=== PATIENT | female | born 1955 | race Caucasian/White ===

== ENCOUNTER 2018-10-19 05:44 | Observation (INO) | payer MEDICARE, OTHER ==
[2018-10-19] MEDS ORDERED: Sodium Chloride 0.9% 10 ML Syringe FLUSH PRN ×2 (05:53→17:07)
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
[2018-10-19] MEDS ORDERED: Furosemide 40 MG Tab PO ONE (06:49)
[2018-10-19] MEDS ORDERED: methylPREDNISolone Sodium Succinate 125 MG/2 ML SDV IVPUSH ONE (07:02)
[2018-10-19 07:03] LABS: CHLORIDE,CL 106 mmol/L (98-107); SODIUM,NA 143 mmol/L (136-145)
[2018-10-19 07:05] LABS: ANION GAP 9.8 mmol/L (10-20)
[2018-10-19] MEDS ORDERED: Iopamidol 612 MG/ML 100 ML Bottle IVPUSH ONE (07:36)
[2018-10-19] MEDS ORDERED: Albuterol/Ipratropium 3.0-0.5 MG/3 ML Neb Soln NEB PRN (08:00)
[2018-10-19] MEDS ORDERED: Nicotine 14 MG/24 Hr Patch TRDERM SCH (08:00)
[2018-10-19] MEDS ORDERED: Magnesium Sulfate/Water 2 GM in Premix Bag 1 BAG IV ONE (08:06)
--- NOTE | 2018-10-19 08:19 | CR ---
[id number] RAD/RAD Chest PA or AP 1V EXAM: RAD Chest PA or AP 1V INDICATION: SHORTNESS OF BREATH. COMPARISON: 2010. DISCUSSION: Cardiomediastinal silhouette is normal in size and contour, given differences in patient positioning compared to the prior examination. No infiltrate, effusion, pneumothorax, or edema. IMPRESSION: Negative examination of the chest. Benito Griffith MD 10/19/18 0818 Thank you for allowing us to participate in the care of your patient.
--- NOTE | 2018-10-19 08:48 | CT ---
[id number] CT/CTA Chest Exam: CTA Chest Clinical Data: SHORTNESS OF BREATH COMPARISON: CORRELATION IS MADE WITH THE CAT SCAN OF MARCH 18, 2017. FINDINGS: There are no pulmonary emboli. There are small bilateral effusions. There are minimal infiltrates at both lung bases. There is no adrenal mass. There is no mediastinal mass or adenopathy. IMPRESSION: NO PULMONARY EMBOLI. Erik Vera MD 10/19/18 0879 Thank you for allowing us to participate in the care of your patient.
[2018-10-19] MEDS ORDERED: methylPREDNISolone Sodium Succinate 125 MG/2 ML SDV IVPUSH SCH (15:00)
[2018-10-19] MEDS ORDERED: Enoxaparin 40 MG/0.4 ML Syringe SUBCUT ONE (15:29)
--- NOTE | 2018-10-19 15:38 | PCM.SN ---
- Free Text/Narrative Note: Results of CTA chest negative for PE. Will begin Lovenox 40 mg daily SQ injection.
[2018-10-19] MEDS ORDERED: HYDROCODONE PO PRN (15:50)
[2018-10-19] MEDS ORDERED: ALBUTEROL INH PRN (15:50)
[2018-10-19] MEDS ORDERED: Ibuprofen 200 MG Tab PO PRN (15:50)
[2018-10-19] MEDS ORDERED: Nitroglycerin 0.4 MG Tab.SL SL PRN (15:50)
[2018-10-19] MEDS ORDERED: LIDOCAINE HCL TP PRN (15:50)
[2018-10-19] MEDS ORDERED: Non-Formulary Medication 1 Each (Nystatin [Nystatin] 1 APPLIC) TOP PRN (15:50)
[2018-10-19] MEDS ORDERED: Loratadine 10 MG Tab PO PRN (15:50)
[2018-10-19] MEDS ORDERED: ACETAMINOPHEN PO PRN (15:50)
[2018-10-19] MEDS ORDERED: Vitamin B6-pyridOXINE 50 MG Tab PO SCH (16:00)
[2018-10-19] MEDS ORDERED: UREA TOP SCH (16:00)
[2018-10-19] MEDS ORDERED: Furosemide 40 MG Tab **OWN MED PO SCH (16:00)
[2018-10-19] MEDS ORDERED: Potassium Chloride 10 MEQ Tab.ER PO SCH (16:00)
[2018-10-19] MEDS ORDERED: CITALOPRAM 20 MG PO SCH (16:00)
[2018-10-19] MEDS ORDERED: Nitroglycerin 0.4 MG/HR Transdermal Patch TRDERM SCH (16:00)
[2018-10-19] MEDS ORDERED: Calcium Carbonate/Vitamin D3 1250 MG-200 Unit Tab PO SCH (16:00)
[2018-10-19] MEDS ORDERED: LEFLUNOMIDE 10 MG PO SCH (16:00)
[2018-10-19] MEDS ORDERED: Non-Formulary Medication 1 Each (Magnesium Oxide [Magnesium] 500 MG) PO SCH (16:00)
[2018-10-19] MEDS ORDERED: ENALAPRIL 10 MG PO SCH (16:00)
[2018-10-19] MEDS ORDERED: Fish Oil/Omega-3 Fatty Acids 1 Gm Cap PO SCH (16:00)
[2018-10-19] MEDS ORDERED: LORazepam 0.5 MG Tab PO PRN (17:00)
[2018-10-19] MEDS ORDERED: MINOCYCLINE 100 MG PO SCH (17:00)
[2018-10-19] MEDS ORDERED: Aspirin 81 MG Tab.EC PO SCH (17:00)
[2018-10-19] MEDS ORDERED: Cyanocobalamin (Vitamin B12) 250 MCG Tab PO SCH (17:00)
[2018-10-19] MEDS ORDERED: Aspirin 325 MG Tab.EC PO SCH (17:00)
[2018-10-19] MEDS: Carvedilol 6.25 MG Tab **OWN MED PO SCH ×2 (17:09→18:22)
[2018-10-19] MEDS ORDERED: Magnesium Oxide 400 MG Tab PO SCH (17:15)
[2018-10-19] MEDS ORDERED: Heparin Sodium/0.45% NaCl 25,000 UNITS/500 ML BAG IV SCH (17:15)
--- NOTE | 2018-10-19 17:20 | PCM.SN ---
- Free Text/Narrative Note: Repeat troponin level of 0.591. I did review this finding with the patient and again encouraged her to allow transfer to [place] for additional testing. She did say she will visit with her daughter and let me know about transfer. In the meantime, will stop ibuprofen, start heparin gtt. No bolus due to recent Lovenox injection. Increase ASA to 325mg. Repeat EKG shows minimal changes anterior leads. No acute STEMI
[2018-10-19] MEDS ORDERED: Acetaminophen/HYDROcodone 325-10 MG Tab PO PRN (17:47)
[2018-10-19 18:14] VITALS: BP 154/70; PULSE 93
--- NOTE | 2018-10-19 19:10 | PCM.SN ---
- Free Text/Narrative Note: Discussion held with patient and her daughter. Decision was made to go to [place] for further investigation.
--- NOTE | 2018-10-19 19:20 | PCM.DCSUM1 ---
Discharge Summary - Hospital Course Diagnosis: Stroke: No - Discharge Data Discharge Date: 10/19/18 Discharge Disposition: DC/Tfer to Acute Hospital 02 Condition: Good - Discharge Diagnosis/Problem(s) (1) COPD exacerbation SNOMED Code(s): 047451703 ICD Code: J44.1 - CHRONIC OBSTRUCTIVE PULMONARY DISEASE W (ACUTE) EXACERBATION Status: Acute Priority: Medium Current Visit: Yes - Patient Summary/Data Consults: Consultations 10/19/18 08:23 Consult to Case Management/Fabric Designer [CONS] Routine - Discharge Plan *PRESCRIPTION DRUG MONITORING PROGRAM REVIEWED*: Not Applicable *COPY OF PRESCRIPTION DRUG MONITORING REPORT IN PATIENT NIKI: Not Applicable Home Medications: Home Meds Aspirin [Halfprin] 81 mg PO DAILY 10/24/13 [History] Carvedilol [Coreg] 6.25 mg PO TIDMEALS 10/24/13 [History] Citalopram Hydrobromide [Celexa] 30 mg PO DAILY 10/24/13 [History] Cyanocobalamin (Vitamin B-12) [Vitamin B-12] 250 mcg PO DAILY 10/24/13 [History] Enalapril Maleate [Vasotec] 10 mg PO DAILY 10/24/13 [History] Hydrocodone/Acetaminophen [Union 7.5-325 Tablet] 1 - 1.5 tab PO Q6H PRN [History] Imipramine HCl [Tofranil] 10 mg PO DAILY 10/24/13 [History] Magnesium Oxide [Magnesium] 500 mg PO DAILY 10/24/13 [History] Nitroglycerin [Nitro-Dur 0.4 MG/Hr] 0.4 mg TRDERM DAILY 10/24/13 [History] Nitroglycerin [Nitrostat] 0.3 mg SL Q5M PRN 10/24/13 [History] Potassium Chloride 10 meq PO DAILY 10/24/13 [History] Lidocaine HCl [Aspercreme] 1 applic TP TID PRN 04/19/16 [History] Albuterol [IJD: Ventolin HFA] 1 puff PO Q4H PRN 05/03/16 [History] Ergocalciferol (Vitamin D2) [Vitamin D2] 50,000 unit PO WEEKLY 05/03/16 [History ] Ezetimibe/Simvastatin [Vytorin 10-20 mg Tablet] 1 tab PO BEDTIME 05/03/16 [ History] Nystatin 1 applic TOP BID PRN 06/16/16 [History] Pyridoxine HCl (Vitamin B6) [Pyridoxine HCl] 100 mg PO DAILY 06/16/16 [History] Calcium Carbonate [Calcium] 1,200 mg PO DAILY 10/19/18 [History] Esomeprazole Magnesium [Nexium] 40 mg PO DAILY 10/19/18 [History] Furosemide [Lasix] 60 mg PO DAILY 10/19/18 [History] Ibuprofen 600 mg PO BID PRN 10/19/18 [History] LORazepam [Ativan] 0.5 mg PO DAILY PRN 10/19/18 [History] Leflunomide [Arava] 10 mg PO DAILY 10/19/18 [History] Loratadine [Claritin] 10 mg PO DAILY PRN 10/19/18 [History] Minocycline [Minocin] 100 mg PO BIDAC 10/19/18 [History] [place]-3/DHA/Epa/Fish Oil [[place]-3 Fish Oil 1,200 MG Sfgl] 1,200 mg PO DAILY 02/27 [History] Urea [Urea 20% Crm] 1 applic TOP DAILY 10/19/18 [History] traZODone HCl [Trazodone HCl] 100 mg PO BEDTIME 10/19/18 [History] Forms: ED Department Discharge, Interfacility Transfer EMTALA Referrals: Marian Lugo DO [Primary Care Provider] - - Discharge Summary/Plan Comment DC Time >30 min.: Yes Discharge Summary/Plan Comment: Patient will be transferred to [facility] for further evaluation. Dr. Rojas given report and she has accepted to the general medical floor. - General Info Admission Dx/Problem (Free Text: elevated troponin, copd exacerbation Functional Status: Reports: Pain Controlled - Review of Systems General: Reports: No Symptoms HEENT: Reports: No Symptoms Pulmonary: Reports: Shortness of Breath Cardiovascular: Reports: No Symptoms Gastrointestinal: Reports: No Symptoms Genitourinary: Reports: No Symptoms Musculoskeletal: Reports: No Symptoms Skin: Reports: No Symptoms Neurological: Reports: No Symptoms Psychiatric: Reports: Anxiety - Patient Data Vitals - Most Recent: Last Vital Signs Temp 36.8 C 10/19/18 18:00 Pulse 93 10/19/18 18:00 Resp 20 10/19/18 18:00 BP 154/70 H 10/19/18 18:00 Pulse Ox 100 10/19/18 18:00 Weight - Most Recent: 102.512 kg I&O - Last 24 hours: Intake & Output 10/19/18 10/19/18 10/19/18 06:59 14:59 22:59 Intake Total 240 1370 Output Total 300 Balance -60 1370 Lab Results - Last 24 hrs: Laboratory Results - last 24 hr 10/19/18 10/19/18 10/19/18 Range/Units 06:03 06:03 06:03 WBC 9.1 (4.0-10.0) x10^3/uL RBC 4.51 (4.00-5.50) x10^6/uL Hgb 13.8 (12.0-16.0) g/dL Hct 42.9 (33.0-47.0) % MCV 95.1 H (78.0-93.0) fL MCH 30.6 (26.0-32.0) pg MCHC 32.2 (32.0-36.0) g/dL RDW Coeff of Arturo 14.3 (10.0-15.0) % Plt Count 137 (130-400) x10^3/uL Neut % (Auto) 80.6 H (50.0-80.0) % Lymph % (Auto) 9.9 L (25.0-50.0) % [place] % (Auto) 6.6 (2.0-11.0) % Eos % (Auto) 2.5 (0.0-4.0) % Baso % (Auto) 0.4 (0.2-1.2) % PT 10.1 (10.0-12.8) SEC INR 0.9 L (2.0-3.5) APTT (24.0-36.0) SEC D-Dimer, Quantitative 1.38 H (<=0.58) mg/LFEU Sodium 143 (136-145) mmol/L Potassium 4.8 (3.5-5.1) mmol/L Chloride 106 (98-107) mmol/L Carbon Dioxide 32 (21-32) mmol/L Anion Gap 9.8 L (10-20) mmol/L BUN 14 (7-18) mg/dL Creatinine 0.7 (0.55-1.02) mg/dL Est Cr Clr Drug Dosing TNP Estimated GFR (MDRD) > 60 Glucose 88 (74-106) mg/dL Lactic Acid (0.4-2.0) mmol/L Calcium 9.0 (8.5-10.1) mg/dL Corrected Calcium 9.80 (8.5-10.1) mg/dL Phosphorus 4.0 (2.6-4.7) mg/dL Magnesium 1.7 L (1.8-2.4) mg/dL Total Bilirubin 0.3 (0.2-1.0) mg/dL AST 33 (15-37) U/L ALT 32 (14-59) U/L Alkaline Phosphatase 86 (46-116) U/L Troponin I 0.198 H* (<=0.056) ng/mL C-Reactive Protein < 0.2 (<=0.9) mg/dL NT-Pro-B Natriuret Pep 1320 H (<=125) pg/mL Total Protein 6.7 (6.4-8.2) g/dL Albumin 3.0 L (3.4-5.0) g/dL Globulin 3.7 Albumin/Globulin Ratio 0.81 TSH, Ultra Sensitive 2.700 (0.358-3.74) uIU/mL Urine Color (YELLOW) Urine Appearance (CLEAR) Urine pH (5.0-8.0) Ur Specific [place] Urine Protein (NEGATIVE) mg/dL Urine Glucose (UA) (NEGATIVE) mg/dL Urine Ketones (NEGATIVE) mg/dL Urine Occult Blood (NEGATIVE) Urine Nitrite (NEGATIVE) Urine Bilirubin (NEGATIVE) Urine Urobilinogen (0.2) EU/dL Ur Leukocyte Esterase (NEGATIVE) Urine RBC (NOT SEEN) /HPF Urine WBC (NOT SEEN) /HPF Ur Squamous Epith Cells (NEGATIVE) /HPF Urine Bacteria (NEGATIVE) /HPF Urine Mucus (NEGATIVE) /LPF 10/19/18 10/19/18 10/19/18 Range/Units 06:03 08:30 15:46 WBC (4.0-10.0) x10^3/uL RBC (4.00-5.50) x10^6/uL Hgb (12.0-16.0) g/dL Hct (33.0-47.0) % MCV (78.0-93.0) fL MCH (26.0-32.0) pg MCHC (32.0-36.0) g/dL RDW Coeff of Arturo (10.0-15.0) % Plt Count (130-400) x10^3/uL Neut % (Auto) (50.0-80.0) % Lymph % (Auto) (25.0-50.0) % [place] % (Auto) (2.0-11.0) % Eos % (Auto) (0.0-4.0) % Baso % (Auto) (0.2-1.2) % PT (10.0-12.8) SEC INR (2.0-3.5) APTT (24.0-36.0) SEC D-Dimer, Quantitative (<=0.58) mg/LFEU Sodium (136-145) mmol/L Potassium (3.5-5.1) mmol/L Chloride (98-107) mmol/L Carbon Dioxide (21-32) mmol/L Anion Gap (10-20) mmol/L BUN (7-18) mg/dL Creatinine (0.55-1.02) mg/dL Est Cr Clr Drug Dosing Estimated GFR (MDRD) Glucose (74-106) mg/dL Lactic Acid 0.9 (0.4-2.0) mmol/L Calcium (8.5-10.1) mg/dL Corrected Calcium (8.5-10.1) mg/dL Phosphorus (2.6-4.7) mg/dL Magnesium (1.8-2.4) mg/dL Total Bilirubin (0.2-1.0) mg/dL AST (15-37) U/L ALT (14-59) U/L Alkaline Phosphatase (46-116) U/L Troponin I 0.591 H* (<=0.056) ng/mL C-Reactive Protein (<=0.9) mg/dL NT-Pro-B Natriuret Pep (<=125) pg/mL Total Protein (6.4-8.2) g/dL Albumin (3.4-5.0) g/dL Globulin Albumin/Globulin Ratio TSH, Ultra Sensitive (0.358-3.74) uIU/mL Urine Color Dark yellow H (YELLOW) Urine Appearance Clear (CLEAR) Urine pH 5.5 (5.0-8.0) Ur Specific [place] 1.010 Urine Protein Negative (NEGATIVE) mg/dL Urine Glucose (UA) Negative (NEGATIVE) mg/dL Urine Ketones Negative (NEGATIVE) mg/dL Urine Occult Blood Negative (NEGATIVE) Urine Nitrite Negative (NEGATIVE) Urine Bilirubin Negative (NEGATIVE) Urine Urobilinogen 0.2 (0.2) EU/dL Ur Leukocyte Esterase Negative (NEGATIVE) Urine RBC 0-5 (NOT SEEN) /HPF Urine WBC 0-5 (NOT SEEN) /HPF Ur Squamous Epith Cells Few H (NEGATIVE) /HPF Urine Bacteria Rare (NEGATIVE) /HPF Urine Mucus Not seen (NEGATIVE) /LPF 10/19/18 Range/Units 17:20 WBC (4.0-10.0) x10^3/uL RBC (4.00-5.50) x10^6/uL Hgb (12.0-16.0) g/dL Hct (33.0-47.0) % MCV (78.0-93.0) fL MCH (26.0-32.0) pg MCHC (32.0-36.0) g/dL RDW Coeff of Arturo (10.0-15.0) % Plt Count (130-400) x10^3/uL Neut % (Auto) (50.0-80.0) % Lymph % (Auto) (25.0-50.0) % [place] % (Auto) (2.0-11.0) % Eos % (Auto) (0.0-4.0) % Baso % (Auto) (0.2-1.2) % PT (10.0-12.8) SEC INR (2.0-3.5) APTT 25.0 (24.0-36.0) SEC D-Dimer, Quantitative (<=0.58) mg/LFEU Sodium (136-145) mmol/L Potassium (3.5-5.1) mmol/L Chloride (98-107) mmol/L Carbon Dioxide (21-32) mmol/L Anion Gap (10-20) mmol/L BUN (7-18) mg/dL Creatinine (0.55-1.02) mg/dL Est Cr Clr Drug Dosing Estimated GFR (MDRD) Glucose (74-106) mg/dL Lactic Acid (0.4-2.0) mmol/L Calcium (8.5-10.1) mg/dL Corrected Calcium (8.5-10.1) mg/dL Phosphorus (2.6-4.7) mg/dL Magnesium (1.8-2.4) mg/dL Total Bilirubin (0.2-1.0) mg/dL AST (15-37) U/L ALT (14-59) U/L Alkaline Phosphatase (46-116) U/L Troponin I (<=0.056) ng/mL C-Reactive Protein (<=0.9) mg/dL NT-Pro-B Natriuret Pep (<=125) pg/mL Total Protein (6.4-8.2) g/dL Albumin (3.4-5.0) g/dL Globulin Albumin/Globulin Ratio TSH, Ultra Sensitive (0.358-3.74) uIU/mL Urine Color (YELLOW) Urine Appearance (CLEAR) Urine pH (5.0-8.0) Ur Specific [place] Urine Protein (NEGATIVE) mg/dL Urine Glucose (UA) (NEGATIVE) mg/dL Urine Ketones (NEGATIVE) mg/dL Urine Occult Blood (NEGATIVE) Urine Nitrite (NEGATIVE) Urine Bilirubin (NEGATIVE) Urine Urobilinogen (0.2) EU/dL Ur Leukocyte Esterase (NEGATIVE) Urine RBC (NOT SEEN) /HPF Urine WBC (NOT SEEN) /HPF Ur Squamous Epith Cells (NEGATIVE) /HPF Urine Bacteria (NEGATIVE) /HPF Urine Mucus (NEGATIVE) /LPF Med Orders - Current: Current Medications Hydrocodone Bitart/Acetaminophen ([place] 325-10 Mg) 1 tab PO Q4H PRN PRN Reason: Pain Last Admin: 10/19/18 18:28 Dose: 1 tab Albuterol/Ipratropium (Duoneb 3.0-0.5 Mg/3 Ml) 3 ml NEB Q4H PRN PRN Reason: dyspnea/wheezing Aspirin (Ecotrin) 325 mg PO DAILY [facility] Last Admin: 10/19/18 17:08 Dose: 325 mg Calcium Carbonate (Calcium Carbonate/Vitamin D 1250 Mg-200 Unit) 2 tab PO DAILY [facility] Last Admin: 10/19/18 18:21 Dose: Not Given Carvedilol (Coreg) 6.25 mg PO TIDMEALS [facility] Last Admin: 10/19/18 18:22 Dose: Not Given Cyanocobalamin (Vitamin B12) 250 mcg PO DAILY [facility] Last Admin: 10/19/18 17:08 Dose: 250 mcg Enalapril Maleate (Vasotec) 10 mg PO DAILY [facility] Last Admin: 10/19/18 17:09 Dose: 10 mg Ergocalciferol (Vitamin D2) 50,000 units PO Q7D [facility] Fish Oil (Fish Oil) 1 gm PO DAILY [facility] Last Admin: 10/19/18 18:36 Dose: Not Given Furosemide (Lasix) 60 mg PO DAILY [facility] Last Admin: 10/19/18 17:11 Dose: 60 mg Heparin Sodium/Sodium Chloride (Heparin 25,000 Units In 1/2 Ns 500 Ml) 25,000 units in 500 mls @ 20 mls/hr IV TITRATE [facility]; Protocol Last Admin: 10/19/18 17:33 Dose: 1,000 units/hr, 20 mls/hr Imipramine HCl (Imipramine Hcl) 10 mg PO DAILY [facility] Last Admin: 10/19/18 18:27 Dose: 10 mg Loratadine (Claritin) 10 mg PO DAILY PRN PRN Reason: Allergies Lorazepam (Ativan) 0.5 mg PO DAILY PRN PRN Reason: Anxiety Last Admin: 10/19/18 19:10 Dose: 0.5 mg Magnesium Oxide (Magnesium Oxide) 400 mg PO DAILY [facility] Last Admin: 10/19/18 18:40 Dose: Not Given Methylprednisolone Sodium Succinate (Solu-Medrol) 125 mg IVPUSH Q8H [facility] Last Admin: 10/19/18 14:33 Dose: 125 mg Miscellaneous Information (Remove Patch) 1 ea TRDERM BEDTIME [facility] Nicotine (Habitrol) 14 mg TRDERM DAILY [facility] Last Admin: 10/19/18 08:42 Dose: 14 mg Nitroglycerin (Nitro-Dur 0.4 Mg/Hr) 0.4 mg TRDERM DAILY [facility] Last Admin: 10/19/18 18:36 Dose: Not Given Nitroglycerin (Nitrostat) 0.4 mg SL Q5M PRN PRN Reason: Chest Pain Albuterol (Proair) Hfa Inhaler Own Med 0 puff INH Q4H PRN PRN Reason: Wheezing Citalopram (Celexa) 20 Mg Tabs Own Med 0 mg PO DAILY [facility] Last Admin: 10/19/18 17:09 Dose: 30 mg Ezetimibe/Simvastatin (Vytorin ) 10-20 Mg Tab Own Med 1 tab PO BEDTIME [facility] Leflunomide (Arava) 10 Mg Tab Own Med* * 0 mg PO DAILY [facility] Last Admin: 10/19/18 17:09 Dose: 10 mg Minocycline (Minocin ) 100 Mg Caps Own Med 0 mg PO BIDAC [facility] Last Admin: 10/19/18 17:10 Dose: 100 mg Trazodone 100 Mg Tab (Own Med) 0 mg PO BEDTIME [facility] Omeprazole (Omeprazole) 40 mg PO DAILY [facility] Potassium Chloride (Klor-Con 10) 10 meq PO DAILY [facility] Last Admin: 10/19/18 18:36 Dose: Not Given Psyllium Hydrophilic Mucilloid (Metamucil) 1.04 gm PO BEDTIME [facility] Pyridoxine HCl (Vitamin B6-Pyridoxine) 100 mg PO DAILY [facility] Last Admin: 10/19/18 18:02 Dose: Not Given Sodium Chloride (Saline Flush) 10 ml FLUSH ASDIRECTED PRN PRN Reason: Keep Vein Open Discontinued Medications Aspirin (Halfprin) 81 mg PO DAILY [facility] Enoxaparin Sodium (Lovenox) 40 mg SUBCUT ONETIME ONE Stop: 10/19/18 15:30 Last Admin: 10/19/18 15:52 Dose: 40 mg Furosemide (Lasix) 40 mg PO ONETIME ONE Stop: 10/19/18 06:50 Last Admin: 10/19/18 07:15 Dose: 40 mg Magnesium Sulfate 2 gm/ Premix 50 mls @ 25 mls/hr IV ONETIME ONE Stop: 10/19/18 10:05 Last Admin: 10/19/18 08:45 Dose: 25 mls/hr Ibuprofen (Motrin) 600 mg PO BID PRN PRN Reason: MILD-MODERATE PAIN Iopamidol (Isovue-300 (61%)) 100 ml IVPUSH ONETIME ONE Stop: 10/19/18 07:37 Last Admin: 10/19/18 08:13 Dose: 100 ml Methylprednisolone Sodium Succinate (Solu-Medrol) 125 mg IVPUSH ONETIME ONE Stop: 10/19/18 07:03 Last Admin: 10/19/18 07:15 Dose: 125 mg Non-Formulary Medication (Hydrocodone/Acetaminophen [[place] 7.5-325]) 1 - 1.5 tab PO Q6H PRN PRN Reason: MODERATE PAIN Non-Formulary Medication (Lidocaine Hcl [Aspercreme]) 1 applic TP TID PRN PRN Reason: Pain Non-Formulary Medication (Magnesium Oxide [Magnesium]) 500 mg PO DAILY [facility] Last Admin: 10/19/18 17:03 Dose: Not Given Non-Formulary Medication (Nystatin [Nystatin]) 1 applic TOP BID PRN PRN Reason: Other Non-Formulary Medication (Urea [Urea 20% Crm]) 1 applic TOP DAILY [facility] Last Admin: 10/19/18 17:01 Dose: Not Given Sodium Chloride (Saline Flush) 10 ml FLUSH ASDIRECTED PRN PRN Reason: Keep Vein Open - Exam Quality Assessment: Reports: Supplemental Oxygen General: Reports: Alert, Oriented, Cooperative, No Acute Distress HEENT: Reports: Pupils Equal Lungs: Reports: Clear to Auscultation, Normal Respiratory Effort Cardiovascular: Reports: Regular Rate, Regular Rhythm GI/Abdominal Exam: Normal Bowel Sounds, Soft, Non-Tender, No Organomegaly, No Distention, No Abnormal Bruit, No Mass, Pelvis Stable Skin: Reports: Other (skin is ashen in color) Neurological: Reports: No New Focal Deficit Psy/Mental Status: Reports: Alert, Normal Affect, Normal Mood
[2018-10-19] MEDS ORDERED: SIMVASTATIN PO SCH (20:00)
[2018-10-19] MEDS ORDERED: Psyllium 0.52 GM Cap PO SCH (20:00)
[2018-10-19] MEDS ORDERED: EZETIMIBE PO SCH (20:00)
[2018-10-19] MEDS ORDERED: TRAZODONE 100 MG PO SCH (20:00)
[2018-10-20] MEDS ORDERED: Omeprazole 20 MG Cap.CR PO SCH (07:00)
[2018-10-21] MEDS ORDERED: Ergocalciferol (Vitamin D2) 1.25 MG Cap PO SCH (09:00)
== END 2018-10-19 20:41 | disposition short-term general hospital (02) ==
LOC: VM.ED 05:44 → VM.MS 07:23
PROVIDERS: ADMIT Nurse Practitioner Family; ATTEND Nurse Practitioner Family
DX: J44.1 Chronic obstructive pulmonary disease with (acute) exacerbation (principal); F32.9 Major depressive disorder, single episode, unspecified; I50.9 Heart failure, unspecified; I25.10 Atherosclerotic heart disease of native coronary artery without angina pectoris; E78.00 Pure hypercholesterolemia, unspecified; K21.9 Gastro-esophageal reflux disease without esophagitis; M06.9 Rheumatoid arthritis, unspecified; F41.9 Anxiety disorder, unspecified; E66.9 Obesity, unspecified; Z68.37 Body mass index [BMI] 37.0-37.9, adult; Z88.1 Allergy status to other antibiotic agents; Z88.5 Allergy status to narcotic agent; Z88.0 Allergy status to penicillin; Z88.8 Allergy status to other drugs, medicaments and biological substances; Z91.048 Other nonmedicinal substance allergy status; Z79.82 Long term (current) use of aspirin; Z79.899 Other long term (current) drug therapy
CPT/HCPCS: 36415; 71045; 71275; 80053; 81001; 83605; 83735; 83880; 84100; 84443; 84484; 85025; 85379; 85610; 85730; 86140; 87040; 93005; 96365; 96366; 96372; 96375; 96376; 99285; A4217; A9270; G0378; J1644; J1650; J2930; J3475; Q9967; 93010; 96374; 99236